=== PATIENT | male | born 1930 | race Caucasian/White ===

== ENCOUNTER 2016-12-15 15:24 | Inpatient (IN) | payer MEDICARE, OTHER ==
[~2016-12-15] VITALS: Ht 175.3 cm; Wt 95.5 kg
--- NOTE | ~2016-12-15 | HP ---
[facility] AGE[facility] 86 Y [address] ROOM: [place] [address] LOCATION: [facility] ADMIT DATE: 12/15/2016 History & Physical DISCHARGE DATE: FAMILY PHYSICIAN: PHYSICIAN, UNKNOWN ATTENDING PHYSICIAN: Ashley Vasques DATE OF SERVICE: 12/15/2016 REASON FOR REFERRAL: Cervical spine fracture. PATIENT IDENTIFICATION: Manuel Valle is an 86-year-old male. PRESENTING COMPLAINT: Fall. HISTORY OF PRESENT ILLNESS: The patient says he woke up this morning at 5:00 a.m. as he has been doing for years. He and his had a cup of coffee and his went off to nondenominational. He went back and sat on the edge of his bed. The next thing he remembers is hearing a thud and he had fallen down to the floor. He may have fallen asleep. He did sustain an abrasion to the left forehead area and also had neck pain. He was able to get a pillow from the closet and make himself comfortable on the floor until his got back from nondenominational. His then called their son who helped to lift the patient back up to bed again. The patient was then taken to the ER in [place]. He had a head CT scan and a cervical spine CT. The imaging studies showed cervical spine fracture, see below. The patient was therefore transferred to [facility] for further evaluation and treatment. According to the patient's notes, the patient has had a couple of falls lately. PAST MEDICAL HISTORY: Significant for hypertension, sleep apnea, degenerative arthritis of the knee, type 2 diabetes, gastroesophageal reflux disease, gout, coronary artery disease, benign prostate hyperplasia, congestive heart failure with ejection fraction less than 40% as of October 14, 2016. The patient also has hypoxia and urinary retention. The patient has had pacemaker placed in 2012. He also has stents in his coronary arteries. He has had tooth extractions. FAMILY HISTORY: According to the records, the patient has leukemic reticuloendotheliosis. His father and some siblings have . [facility] AGE: 86 Y [address] ROOM: [place] [address] LOCATION: [facility] ADMIT DATE: 12/15/2016 History & Physical DISCHARGE DATE: FAMILY PHYSICIAN: PHYSICIAN, UNKNOWN ATTENDING PHYSICIAN: Ashley Vasques SOCIAL HISTORY: The patient is and lives with his spouse. He drinks alcohol occasionally. He quit smoking in 1979 after smoking a pack a day for 15 years before that. REVIEW OF SYSTEMS: CONSTITUTIONAL: No fevers or chills. HEAD, EAR, NOSE, AND THROAT: No cold symptoms or ear discharge or ear pain. RESPIRATORY: No cough or shortness of breath. CARDIOVASCULAR: No chest pain. MUSCULOSKELETAL: The patient has neck pain. NEUROLOGICAL: No tingling or weakness in his extremities. GASTROINTESTINAL: No abdominal pain. PHYSICAL EXAMINATION: GENERAL: The patient is an elderly gentleman who is quite alert and clear in his speech. VITAL SIGNS: From the records, blood pressure 141/73 and heart rate is 74. NEUROLOGIC: Speech is clear. Cranial nerves, no gross deficits. HEAD, EYES, EARS, NOSE, AND THROAT: The patient has an abrasion to the left forehead area. EXTREMITIES: No cyanosis, but the patient has bruising in his arms. MOTOR EXAMINATION: The patient is unable to raise his left arm fully, but this is someone old situation, nothing related to the current fall. He has normal strength in all his other extremities. CARDIOVASCULAR: Heart sounds are present. RESPIRATORY: Not short of breath at bedside. SKIN: No skin rashes or skin masses. GENITOURINARY: The patient has an indwelling Kaur catheter. EXTREMITIES: The patient has bilateral pitting edema, trace. REVIEW OF IMAGING STUDIES: The patient has had CT scan of the cervical spine and head. Cervical spine CT shows a type 2 odontoid fracture with only slight displacement. The patient also has a Tim-type fracture. ASSESSMENT: An 86-year-old male with history of fall from his bed this morning, now has a cervical spine fracture. MEDICAL DECISION MAKING: The patient has been admitted to the hospital and his fractures will be treated with a cervical collar at the first instance. Repeat CT scan will be obtained in the next 2 days to check stability. If the fractures remain PATIENT'S NAME: MANUEL VALLE [facility] AGE: 86 Y [address] ROOM: [address] [address] LOCATION: [facility] ADMIT DATE: 12/15/2016 History & Physical DISCHARGE DATE: FAMILY PHYSICIAN: PHYSICIAN, UNKNOWN ATTENDING PHYSICIAN: Ashley Vasques stable, it will be possible to treat the patient nonoperatively. On the other hand, if he shows displacement, we will have to talk about surgery at that point. MD NADINE BOWDENO/modl /[id number] CC: Corby Cruz MD D: T: HISTORY & PHYSICAL
--- NOTE | ~2016-12-15 | DS ---
PATIENT'S NAME: GORGE VALLE [facility] AGE: 86 Y [address] ROOM: [facility] [place], [place] [address] LOCATION: [facility] ADMIT DATE: 12/16/2016 Discharge Summary DISCHARGE DATE: 12/24/2016 FAMILY PHYSICIAN: Physician, Unknown ATTENDING PHYSICIAN: Ashley Vasques REASON FOR ADMISSION: The patient had a fall at home and sustained a cervical spine fracture. On examination, the patient was alert and fully responsive. He had an abrasion to the left forehead area. TREATMENT RENDERED: The patient was admitted to the hospital. He had a CT scan of his cervical spine from the referring facility. The CT scan showed a type 2 odontoid fracture as well as a Tim fracture. The patient was maintained in cervical collar with spine precautions. He had a repeat CT scan while in the collar. The CT scan showed stable fractures. We, however, could not explain why the patient had had significant problems walking. It appeared every time he stood up, his legs would give out on him. For this reason, CT scan of the lumbar spine was performed. The CT scan showed severe spinal stenosis. The patient was therefore taken to the operating room and underwent bilateral laminectomy at L2-L3, L3-L4, and L4-L5. His surgery was uncomplicated. His postoperative course was uneventful. It was not clear whether the patient has really got much strength back in his lower extremities. He did try to stand up a few times with Physical Therapy. The patient continued to progress and by the 24 of December, he had met all criteria for dismissal. The patient was transferred that day to [facility] in [place] with diagnoses of cervical spine fractures treated nonoperatively and lumbar spinal stenosis treated with laminectomy. I will follow the patient up in [place] when I go there for outpatient clinic in January. MD NADINE BOWDENO/modl /[id number] d: 12/30/[id number] t: 05/29/17 1915, DISCHARGE SUMMARY
--- NOTE | ~2016-12-15 | CON ---
[facility] AGE: 86 Y [address] ROOM: [place] [address] LOCATION: [facility] ADMIT DATE: 12/16/2016 Consultation DISCHARGE DATE: 12/24/2016 FAMILY PHYSICIAN: Physician, Unknown ATTENDING PHYSICIAN: Ashley Vasques DATE OF CONSULTATION: 12/17/2016 REASON FOR CONSULTATION: Hypercapnic respiratory failure. HISTORY OF PRESENTING ILLNESS: Mr. Manuel Valle is a very pleasant 86-year-old male, who was admitted to the hospital for a cervical spine fracture. Apparently, the patient had a fall landing on the floor, he did sustain an abrasion on his forehead. Apparently, his came back from the mormonism and found him on the floor. He was transferred and he was found to have cervical fracture. Overnight, the patient apparently desaturated and had an ABG, which revealed hypercapnia. The patient was given some narcotics and a little bit of Ativan for agitation and pain. Subsequently, the patient had a history of severe obstructive sleep apnea, which has not been treated. The patient refuses CPAP. The patient denied any current chest pain, pleurisy, hemoptysis, nausea, vomiting, abdominal pain. PAST MEDICAL HISTORY: Significant for: 1. Hypertension. 2. Sleep apnea. 3. Degenerative arthritis of the knee. 4. Type 2 diabetes mellitus. 5. Gastroesophageal reflux disease. 6. Gout. 7. Coronary artery disease. 8. Benign prostate hyperplasia. 9. Congestive heart failure with ejection fraction less than 40% as of October 14, 2016. The patient also has a history of urinary retention. 10. Pacemaker placed in 2012. He has a history of PCI, it is not clear to me which coronary artery. FAMILY HISTORY: His father and siblings are . Further history is not available given the patient's condition. SOCIAL HISTORY: [facility]: [facility] AGE: 86 Y [address] ROOM: [place] [address] LOCATION: [facility] ADMIT DATE: 12/16/2016 Consultation DISCHARGE DATE: 12/24/2016 FAMILY PHYSICIAN: Physician, Unknown ATTENDING PHYSICIAN: Ashley Vasques The patient is and lives with his spouse who drinks alcohol occasionally. He quit smoking in 1979 after smoking a pack a day for 15 years. REVIEW OF SYSTEMS: A 10-point review of system was done and otherwise negative other than mentioned in history of presenting illness. This was done to the best ability of the patient given his situation and confusion. PHYSICAL EXAMINATION: GENERAL: The patient is sitting in bed, comfortable, does not appear in acute distress, although he is a little sleepy. VITAL SIGNS: Blood pressure is 135/75; heart rate was in the mid 80s; respiratory rate were between 10 and 14; SpO2 was in the early 90s, 91-93. HEENT: Eyes are nonicteric. Pupils are equal, reactive to light and accommodation. HEENT: Normocephalic, atraumatic. Mallampati score is 4 with dry mucous membranes. NECK: Short and thick, supple. No lymphadenopathy or jugular venous distention noted. LUNGS: Good bilateral air entry. No rales or rhonchi. HEART: S1, S2. No murmurs, rubs, or gallops. ABDOMEN: Soft, nontender, no palpable organs. LOWER EXTREMITIES: No edema, clubbing, or cyanosis. SKIN: No rashes or lesions. NEUROLOGY: The patient is sitting in bed. He has a collar. He moves all 4 extremities at the current point. He is slightly lethargic, but arousable to verbal stimuli. REVIEW OF IMAGING STUDIES: The patient had a CT scan of the cervical spine and has a cervical CT, shows type 2 odontoid fracture with only slight displacement. The patient has a Tim-type fracture. LABORATORY DATA AT THE TIME OF EVALUATION: Still pending. IMPRESSION: Hypercapnic respiratory failure. At the current point, it is most likely secondary to untreated obstructive sleep apnea associated with narcotic use for pain and also the patient was given Ativan, which has contributed to his hypercapnia. RECOMMENDATIONS: At the current point, recommendations would include: PATIENT'S NAME: MANUEL VALLE [facility] AGE: 86 Y [address] ROOM: [id number] [place] [id number] LOCATION: [facility] ADMIT DATE: 12/16/2016 Consultation DISCHARGE DATE: 12/24/2016 FAMILY PHYSICIAN: Physician, Unknown ATTENDING PHYSICIAN: Ashley Vasques 1. Start the patient on CPAP at night. 2. Place end-tidal CO2 on the patient with narcotic use. 3. It was also advised to avoid narcotic and sedatives if at all possible. 4. Use alternative pain medication. 5. Ambulation as per Neurosurgery. I would also recommend that the patient have a BiPAP p.r.n. with sleeping during the day that will prevent hypercapnia, it would also help decrease the pulmonary artery pressure and the nighttime hypoxemia, which also will promote healing. Thank you for allowing me to participate in the care of this patient. MD TARAS JJ/carl /[id number] d: 01/14/17 0019 t: 01/17/17 1813, CONSULTATION REPORT
--- NOTE | ~2016-12-15 | OR ---
PATIENT'S NAME: GORGE VALLE [facility] AGE: 86 Y [address] ROOM: [address] [address] LOCATION: [facility] ADMIT DATE: 12/16/2016 OR/Procedure Report DISCHARGE DATE: FAMILY PHYSICIAN: PHYSICIAN, UNKNOWN ATTENDING PHYSICIAN: Ashley Vasques SURGEON: Ashley Vasques MD CLIENT SPECIALIST: Suzanna Krishnan CST. DATE OF PROCEDURE: 12/20/2016 PREOPERATIVE DIAGNOSIS: Lumbar spinal stenosis. POSTOPERATIVE DIAGNOSIS: Lumbar spinal stenosis. PROCEDURE PERFORMED: Laminectomy bilateral with foraminotomy and decompression of neural elements at L2-3, L3-4, and L4-5. ANESTHESIA: General. ANESTHESIA PROVIDER: Andres Mtz MD. HISTORY: The patient is an 86-year-old male, admitted with cervical spine fracture. Cervical spine fracture is being treated with a cervical collar. The patient, however, had significant difficulty walking. His legs would just give out on him when he walked a few steps. CT scan of his lumbar spine was performed and it showed severe spinal stenosis, especially at L3-4 and L4-5 and to some degree at L2-3. There was potential for compression of all the nerves traversing these areas. Surgery was therefore recommended. The above procedure, benefits, and risks were discussed with the patient and his family members. Consent was obtained and the patient was taken to the operating room for surgery. PROCEDURE IN DETAIL: In the operating room, the patient was placed in a supine position. Anesthesia was induced. He was intubated. He was rolled to a prone position on a Jacky table, taking care to make sure his neck was stable. The incision was marked out in the midline of his lower back, and the whole area was prepped and draped in a sterile fashion. Local anesthesia was infiltrated. The #10 blade was used to open the incision and deepen it to the fascial layer. Self-retaining retractors were placed. The Bovie was then used to open the fascia and to expose the tips of the spinous processes. The paraspinous muscles were dissected of the laminae and spinous processes of the L2, L3, L4, and L5. Intraoperative x-ray was obtained to confirm the levels. The self-retaining retractors were adjusted. Laminectomy was started. Leksell rongeur was used to remove the spinous processes and the middle portion of the laminae at L2, L3, L4, and L5. A drill was then used to thin down the laminae. Kerrison rongeur was used to continue the central PATIENT'S NAME: GORGE VALLE [facility] AGE: 86 Y [address] ROOM: [place] [address] LOCATION: [facility] ADMIT DATE: 12/16/2016 OR/Procedure Report DISCHARGE DATE: FAMILY PHYSICIAN: PHYSICIAN, UNKNOWN ATTENDING PHYSICIAN: Ashley Vasques decompression. The canal was exceedingly stenotic at L3-4 as the CAT scan had indicated. Working very carefully, laminectomy was continued until the central canal was decompressed. Ligamentum flavum was exceedingly thick in this region. Having completed the central decompression, attention was directed to the lateral recesses and the foramina. The medial facet was drilled down to increase the width of the laminectomy. The Kerrison rongeur was then used to remove part of the medial facet on both sides until the edge of the dura became visible. The disk spaces were identified. The nerve roots were then seen going out into their respective foramina bilaterally at L2-3, L3-4, and L4-5. These foramina were completely decompressed with Kerrison rongeur. There was periodic bleeding which was controlled readily with fibrillar and cottonoids. After satisfactory decompression of both central canal, lateral recesses, and foramina, irrigation was used to wash out the debris. Final hemostasis was achieved. Bone wax was used to wax the edges of the laminectomy. The incision was closed with appropriate suture materials. Nylon was used to close the skin. A sterile dressing was applied. The patient was rolled back to a supine position. His anesthesia was reversed, he was extubated and taken to the recovery room to complete his recovery. I was present at and performed every aspect of this procedure, assisted at some stages by operating room nurses. There were no apparent intraoperative complications. Swabs, needles, and instruments were all accounted for at the end of the case. Estimated blood loss was 300 mL and there was no reason for blood transfusion. I expect the patient to benefit from this procedure. Hopefully, he will be able to walk without his legs buckling on him. MD CHRIS BOWDEN/carl /[id number] d: 12/21/16 0239 t: 12/30/16 1704, OPERATIVE SUMMARY
--- NOTE | 2016-12-16 00:52 | NUR ---
Significant Event: Patient came from [place] via ambulance. After his left for [facility], he went to sit on the edge of bed. He ended up falling asleep and fell out of the bed. He fell and hit his head on carpeted area. Patient laid on the ground a couple of hours until returned from [facility]. He was then transported to [place] to have a CT. They found the cervical fractures and sent him to [facility]. Patient has a history of stent 2011, pacemaker in 2012, type II diabetes, arthritis, renal insufficency - chronic urinary catheter November 2016, pressure ulcers, and O2 at home 2-3L. No known allergies. Rigid collar in place. Bedrest until wallpaper hanger sees to fit vista collar. Family at bedside. IV to left hand. Full code. said patient has been retaining flood so they have him on a low sodium diet with a 2L water restriction. Follow up:
--- NOTE | 2016-12-16 01:05 | NUR ---
Patient came from [place] via ambulance. After his left for [facility], he went to sit on the edge of bed. He ended up falling asleep and fell out of the bed. He fell and hit his head on carpeted area. Patient laid on the ground a couple of hours until returned from [facility]. He was then transported to [place] to have a CT. They found the cervical fractures and sent him to [facility]. Patient has a history of stent 2011, pacemaker in 2012, type II diabetes, arthritis, renal insufficency - chronic urinary catheter November 2016, pressure ulcers, and O2 at home 2-3L. No known allergies. Rigid collar in place. Bedrest until stock hanger sees to fit vista collar. Family at bedside. IV to left hand. Full code. said patient has been retaining fluid so they have him on a low sodium diet with a 2L water restriction.
--- NOTE | 2016-12-16 04:13 | NUR ---
Significant Event: A/OX3. DENIES NUMBNESS AND TINGLING. MOVES ALL EXTREMITIES SPONTANEOUSLY AND TO COMMAND. STRONG, EQUAL STRENGTH. EDEMA TO LOWER EXTREMITIES. 1+ PULSES IN LOWER EXTREMIITES. VISTA COLLAR TO NECK - ON AT ALL TINMES. IV TO LEFT HAND SALINE LOCKED. CHRONIC BENJAMIN IN PLACE. PRESSURE ULCERS TO BUTTOX - WOC CONSULTED. ACHS ACCUCHECKS. SCATTERED ABRASIONS AND BRUISING THROUGHOUT. YEAST TO GLANS OF PENIS. SCDS INTACT. ON 2 L OF O2 CHRONICALLY AT HOME. Follow up:
[2016-12-16] MEDS ORDERED: DEMADEX20 MG PO (09:08)
[2016-12-16] MEDS ORDERED: ANUSOL-HC CREAM30 GM R (09:09)
[2016-12-16] MEDS ORDERED: NORVASC5 MG PO (09:11)
[2016-12-16] MEDS ORDERED: GABAPENTIN100 MG PO (09:12)
[2016-12-16] MEDS ORDERED: NEURONTIN300 MG PO (09:14)
[2016-12-16] MEDS ORDERED: LANTUS (IN100 UNIT/M SUB-Q (09:15)
[2016-12-16] MEDS ORDERED: GLUCOPHAGE500 MG PO (09:16)
[2016-12-16] MEDS ORDERED: TYLENOL325 MG PO (09:17)
[2016-12-16] MEDS ORDERED: ZAROXOLYN2.5 MG PO (09:17)
[2016-12-16] MEDS ORDERED: COLACE100 MG PO (09:18)
[2016-12-16] MEDS ORDERED: ASPIRIN325 MG PO (09:18)
[2016-12-16] MEDS ORDERED: TESSALON PERLE100 MG PO (09:18)
[2016-12-16] MEDS ORDERED: K-TAB 10MEQ10 MEQ PO (09:19)
[2016-12-16] MEDS ORDERED: ZYLOPRIM100 MG PO (09:20)
[2016-12-16] MEDS ORDERED: CIPRO500 MG PO (09:20)
[2016-12-16] MEDS ORDERED: LIPITOR10 MG PO (09:20)
[2016-12-16] MEDS ORDERED: INVOKANA100 MG PO (09:21)
[2016-12-16] MEDS ORDERED: BYSTOLIC5 MG PO (09:21)
[2016-12-16] MEDS ORDERED: GLUCOTROL10 MG PO (09:21)
[2016-12-16] MEDS ORDERED: FEOSOL325 MG PO (09:22)
[2016-12-16] MEDS ORDERED: VITAMIN D-32000 UNI1 PO (09:23)
[2016-12-16] MEDS ORDERED: DUONEB INH (09:23)
[2016-12-16] MEDS ORDERED: DIBUCAINE28 GM R (09:23)
[2016-12-16] MEDS ORDERED: PRILOSEC20 MG PO (09:24)
[2016-12-16] MEDS ORDERED: PROVENTIL OR V6.7 GM INH (09:24)
[2016-12-16] MEDS ORDERED: MILK OF MA400 MG/5 M PO (09:25)
[2016-12-16] MEDS ORDERED: MIRALAX17 GM PO (09:26)
[2016-12-16] MEDS ORDERED: TUCKS PADS TOP (09:26)
--- NOTE | 2016-12-16 16:51 | NUR ---
Significant Event:VSS, paced rhythm, O2 3L/NC for sats 94-98%. rates pain 2-8/10. [place] 1 tab x 2 last dose at 1506. Reports relief of cervical neck pain. Denies pain in shoulders/arms. Denies N/T. Hand grasps strong bilaterally. [place] collar on at all times. Readjusted by Information Technology Officer this a.m. Pt has 3 small open areas on R buttocks, and 1 open are on sacrum. WOC recommends positioning, aloe vesta now. Pt repositioned frequently. Sling lift used for tx to bed/chair. Follow up:Pain control, CM working on NH placement in [facility]. Spouse returned home, and will call for updates.
--- NOTE | 2016-12-17 03:48 | NUR ---
Significant Event: AAOx3, denies N/T. Pupils 3mm sluggish. Systolic 130-140's, HR 70's PACED. 1+ pedal edema with weak pedal pulses. L.S. clear and diminished throughout on BiPAP 35%FiO2, episodes of 30-40 seconds of apnea, saturations sustain 93-99%. 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 Stood patient at bedside and ambulated to couch, his legs did give out and patient reports he has had this happen before. Transfers heavy 2PA walker/GB or Full Lift with chair sling. B.S. active, last BM 12/14. Chronic paul catheter draining brianna urine. PIV L) hand SL'd. Takes medications whole one at a time. Gave Tylenol last at 2355 and [place] at 2100 for posterior neck pain; relief noted, is very sensitive to narcotics, would recommend Tylenol to control pain at meantime. Accuchecks AC/HS, gave Zofran at 2000 for C/O nausea. Follow up: Pulmonology to see patient in AM, monitor neuro status. Turn Q2Hrs, pressure ulcers to cocyx.
--- NOTE | 2016-12-17 11:37 | NUR ---
A - PT SEEN D/T PU CONSULT. ACCUCHECKS IN 200'S. MEDS REVIEWED. PT W/ PU'S TO VAZQUEZ. DIET: DIABETIC W/ 75-100% ORAL INTAKE. D - AT RISK W/ INCREASED NUTRIENT NEEDS R/T ALTERED SKIN INTEGRITY AEB PU'S. I - GOAL: CONTINUED 75-100% INTAKE. M/E - 1) WILL ADD PANCHITO BID AND GLUCERNA QD. 2) F/U IN 3-5 DAYS.
--- NOTE | 2016-12-17 14:44 | NUR ---
Significant Event: VSS. PATIENT ORIENTED X 3. IRRITABLE AT TIMES AND NOT COMPLIANT WITH STAFF. FOLLOWS COMMANDS. MODERATE STRENGTH WITH GRASPS AND FLEXION, BUT WEAKNESS NOTED WHEN RAISING ARMS. HAS A HARD TIME LIFTING THEM DUE TO PAIN IN SHOULDERS. DENIES NUMBNESS/TINGLING. PUPILS 3MM ,SLUGGISH. LUNGS CLEAR AND DIM, CURRENTLY ON 3 LITERS OF O2. WEARS CPAP AT NIGHT. CURRENTLY ON ETCO2 MONITOR PER DR LEON'S ORDER THIS AM. PATIENT WAS VERY DROWSY AND APNEIC IN THE NIGHT, DR RELATING IT TO THE NARCOTICS. IT IS RECOMMENEDED WE DONT GIVE PATIENT NARCOTICS. TYLENOL GIVEN FOR PAIN TODAY, BUT THIS AFTERNOON HIS NECK AND LEFT SHOULDER WERE STILL VERY SORE. ORDERED OBTAINED BY DR THOMPSON FOR TRAMADOL. GIVEN THIS AFTERNOON, SLEEPING NOW. IV IN LEFT HAND SALINE LOCKED, WAS BLEEDING THIS AM. DRESSING CHANGED AND SEEMS TO BE OK NOW. UP WITH 2 ASSIST HEAVY PIVOT OR STAND. MAY NEED LIFT AT TIMES. SORES OPEN TO BUTTOCKS , ALOE APPLIED. PT ALSO C/O HEMMRHOIDS, TUCKS USED TODAY. I STRESSED THE IMPORTANCE OF REPOSITIONING DUE TO HIS SORES AND AT TIMES PATIENT STILL REFUSES. ACCUCHECKS ACHS. Follow up: PAIN CONTROL. NEURO STATUS. REPOSITIONING. ALARMS.
--- NOTE | 2016-12-17 16:12 | NUR ---
Spoke with Yancy at [facility] in [place]. She says they are willing to look at him and to fax information. She says he has been there before and she thinks he has used most of his medicare skilled days. Told her I had talked to about being self pay as he started out as observation status. Yancy will get back to me tomorrow. Faxed information to [facility]. Will follow.
--- NOTE | 2016-12-18 06:44 | NUR ---
Significant Event: Patient alert/oriented x 3. Forgetful at times. Has been pleasant and cooperative for most of shift. Moves all extremities spontaneously and to command with equal strength. Pacemaker. 3L of 02. Wore CPAP last night, compliant. Lungs clear and dim throughout. Active bowel sounds. Chronic indwelling paul intact. Full lift per nursing. L fa SL. [place] collar at all times. Open areas to coccyx and buttocks. Tylenol given x 1 this shift for pain, relief noted. ACHS. Follow up: Continue to monitor.
--- NOTE | 2016-12-18 16:56 | NUR ---
Significant Event: Alert and oriented X 3. O2 at 0.5 L by nasal cannula. SBP 130's and 140's. HR 70's. Accu check 232, 210 and 201. Complete bag bath and shave done today. Up with full lift. Patients knees gave out while therapy was working with him this shift. Patient keeps saying he is falling while sitting in chair, this occurs every time he jerks. Chronic paul with 1375 ml out this shift. Tramadol given X 2 this shift, last given at 1549 for pain of 03/13. Pleasant and cooperative with cares. Follow up:
--- NOTE | 2016-12-18 17:33 | NUR ---
Spoke with patient's and granddaugther this a.m. and told them waiting to hear back from [facility]. asks about him going to [facility]. Told her I can make a referral to them also. Called Ivette at [facility] and referral made. Ivette says they will not accept and recommend SNF at [facility] facility as they say he will require longer stay than is appropriate for them. Call from Taylor at [facility] and they can accept patient. She would like to know if family wants private or semiprivate room as they have both available. Talked to patient, his and granddaughter. Updated them on saying no and [facility] saying yes. Asked if would want private or semi private room and explained there is additional charge for private room and medicare will not pay that additional charge. They say he would want a private room and they voice they understand there is additional charge. Told them it is possible he will be ready for transfer tomorrow. Talked about transportation and told them at this time he would need to transfer via ambulance as not safe to transfer via private vehicle. They voice agreement. Told them medicare will decide after the fact if will cover ambulance. Told them Dr. Vasques will decide if ready for transfer tomorrow or not. Will follow.
--- NOTE | 2016-12-19 02:15 | NUR ---
Significant Event: Patient is alert and oriented x3. Follows commands. Did c/o pain at first assesment PO medications given- denies pain at last two assessements. Equal moderate strength. PERRLA. 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 Thready pulses in lower extremities. No edema. 2-3L per nasal cannula- Bipap on at NOC. Lungs clear/dim to dim. Diabetic diet-accu checks ACHS (mild sliding scale). Last BM 12/14-active x4. Chronic paul zumi-[id number]-ghilg is clear. 2A full lift. Left FA PIV sl'd and flushes well. Witch domo to bottom along with aloe vista. Skin tear to right arm and hand. Follow up: Possible discharge to [facility] today 12/19/16.
--- NOTE | 2016-12-19 15:00 | NUR ---
Multiple calls with Taylor at [facility]. They can accept today if they have the orders by 1400, as medications after that time won't be delivered today. Talked to comm spec and told them possible transfer to [place] today. Charge nurse talked to Dr. Vasques in OR and I talked to him later in OR. He said he would be to the floor before 1400. Have visited with and patient several times today. Dr. Vasques rounds at 1430. Talked to [facility] and they can not accept him today. Dr. Vasques says patient says he doesn't feel as well today, so he orders CT for tomorrow a.m. Anticipate transfer to [facility] tomorrow depending on results of CT scan. Will follow.
--- NOTE | 2016-12-19 19:10 | NUR ---
Significant Event:A/O x 3, follows commands, legs weak. Dameron 1 tab x 2, last dose at 1153 rates pain 3-5/10. Tx poorly, used mechanical lift for transfers. Pt knees give out during therapy. Denies numbness/tingling to upper extremities. [place] collar remains on at all times. O2 on 1L/NC. Lungs clear/diminshed. 3 open areas on buttocks, one on sacrum. WOC monitoring, will see pt again in early a.m. Kaur (chronic) intact with yellow urine. CT scan of cervical and lumbar spine completed. Follow up:DC to [facility] if scans WNL.
--- NOTE | 2016-12-20 07:12 | NUR ---
Significant Event: Patient A/O x 3. Denies N/T. Moves all extremities spontaneously and to command with equal strength. Forgetful of situation at times. Lungs clear and dim on 2 L of 02. CPAP while sleeping. Bowel sounds active. PIV to left wrist SL. Kaur intact. Full lift per nursing. Follow up:[facility] today
--- NOTE | 2016-12-20 11:15 | NUR ---
Dr. Vasques reviewed CT scans and talked with patient and family. Plan is for [facility] later today. Called and update Taylor at [facility] in [place]. Told her will touchbase with her on Friday. Anticipate he will be ready for discharge Friday or Friday. Will follow.
[2016-12-20 11:38] LABS: BASOPHIL % 0.4 %; EOSINOPHIL # 0.1 K/uL (0.0-0.5); EOSINOPHIL % 1.1 %; HEMOGLOBIN 12.1 g/dL (11.0-16.0); IMMATURE GRANULOCYTE % 0.3 %; LYMPHOCYTE # 1.9 K/uL (0.8-4.0); LYMPHOCYTE % 19.4 %; MCH 24.3 pg (27.0-34.0); MCHC 30.3 gm/dL (32.0-36.5); MCV 80.5 fl (83.0-98.0); MONOCYTE # 0.9 K/uL (0.0-1.0); MONOCYTE % 9.1 %; MPV 9.8 fl (9.4-12.4); NEUTROPHIL # (ANC) 6.9 K/uL (1.4-9.0); NEUTROPHIL % 69.7 %; NRBC % 0 /100WBC (0-0.00); PLATELET COUNT 309 K/uL (150-450); RBC 4.97 M/uL (3.50-5.50); RDW-CV 19.9 % (11.9-14.6); WBC 9.9 K/uL (4.0-11.0)
[2016-12-20 11:47] LABS: INR - (THERAPEUTIC) 1.02 (0.92-1.07); PROTIME 10.7 SECONDS (9.8-11.4); PTT 31 SECONDS (25-32)
[2016-12-20 11:57] LABS: ALBUMIN 3.4 gm/dL (3.5-5.0); CALCIUM 9.6 mg/dL (8.5-10.5); TOTAL BILIRUBIN 0.3 mg/dL (0.0-1.5); TOTAL PROTEIN 7.8 g/dL (6.0-8.4)
[2016-12-20 11:59] LABS: ANION GAP 18.7 (10.0-19.0); POTASSIUM 5.7 mMol/L (3.7-5.1)
--- NOTE | 2016-12-20 14:37 | NUR ---
A-NUTRITION F/U TO OR TODAY FOR LAMI. PUs ON COCCYX LABS: NA 134, K+ 5.7, GLU 169, BUN 105, PERSONAL FITNESS MANAGER 3.0, ALB 3.4 NO NEW MEDS SINCE FIRST ASSESSMENT DIET RX: NPO. PO INTAKE PRIOR TO NPO STATUS WAS 50-100%; AVG IS 70% SINCE ADMIT. EST NUTR NEEDS: 0310-3798 KCALS (20-25 KCALS/KG) 110-146 GM PROTEIN (1.5-2.0 GM/KG IBW) 1 ML FLUID/KCAL D-AT NUTRITION RISK W/INCREASED NUTRIENT NEEDS R/T ALTERED SKIN INTEGRITY AEB MULTIPLE PUs ON COCCYX I-RESTART PANCHITO BID AND GLUCERNA QD WHEN DIET RESUMED POST-OP M/E-GOAL: PO INTAKE >/=75% BY NEXT F/U 1)F/U PO INTAKE, SUPPLEMENT, SKIN, AND POC IN 4-6 DAYS 2)ASSIST NEEDED
--- NOTE | 2016-12-20 15:45 | NUR ---
Significant Event: PT alert, forgetful, confused at times. VSS, O2 at 2L per nasal cannula. [place] collar on at all times. Pain controlled with norco. IV patent to L)wrist. Kaur patent. PT up to chair with full lift. PT to OR at 1415. Follow up:
[2016-12-21 04:57] LABS: ALBUMIN 3.1 gm/dL (3.5-5.0); ANION GAP 16.3 (10.0-19.0); CALCIUM 8.8 mg/dL (8.5-10.5); CREATININE 2.8 mg/dL (0.6-1.3); PHOSPHORUS 5.2 mg/dL (2.5-4.9); POTASSIUM 5.3 mMol/L (3.7-5.1)
--- NOTE | 2016-12-21 05:05 | NUR ---
Significant Event: FIRST ASSESSMENT PATIENT WAS ALERT AND ORIENTED TO SELF-CONFUSED, IMPULSIVE, RESTLESS. SECOND ASSESSMENT ADMINISTERED PAIN MEDICATIONS AND PATIENT HAD BECOME MORE CALM. THIRD ASSESSMENT PATIENT BECAME AGITATED AGAIN AND RESTLESS-PAIN MEDS GIVEN. WAS ABLE TO FOLLOW SOME COMMANDS. MUMBLES. MODERATE STRENGTH. THREADY PULSES. LEFT WRIST PIV WITH NS AT 75 ML, RIGHT HAND-SL'd. PERRLA. 2-4L OF O2 PER NC-CPAP ON AT NOC. TAKES PILLS WHOLE WITH WATER ONE AT A TIME. BOWELS ARE HYPO-LAST BM 12/14. 2A FULL LIFT. VISTA COLLAR ON AT ALL TIMES. MAY NEED A 1:1 OR 15 MIN CHECKS Follow up: [facility] WHEN READY.
--- NOTE | 2016-12-21 19:49 | NUR ---
Significant Event: a/o x 3. confused conversationally about having had surgery yesterday and repeatedly stating he is "returning to [employer] today". Pain to back. PRN norco for pain management. equal moderate strength. vista collar on at all times. DSG to back had saturated bloody drainage. old dsg removed and [facility] dsgs- one stacked on the other, placed over surgical site. paced heart rythm. 2 liters of oxygen. full lift with transfers. takes meds whole. ADA diet. accuchecks ac/hs. dulcolax suppository given for bowel regulation with results pending. IV to right hand saline locked. IV to left wrist with NS at 75ml/hr. pedal pulses thready- doppler in room. 3 open areas to coccyx. turn side to side and apply aloe vesta. CPAP at night. Discharge plan- [facility] friday or friday.
--- NOTE | 2016-12-22 05:05 | NUR ---
Significant Event: Patient A/O x 3, forgetful of situation at times. Moves all extremities spontaneously and to command with equal strength througout. Very [place]. Denies N/T. Generalized headache and pain to back this shift. Lungs clear and dim on 1-2 L during the day and CPAP at night. Given Ultram x 1 this shift at 1930, relief noted. No bm this shift. Given Milk of Mag this am. ADA soft diet. Chronic paul intact. Full lift for transfers. [place] Bar[place] dressing x 2 intact with scant drainage to lumbar spine. Open areas to coccyx and buttocks. [place] collar on at all times. NS running at 75 ml/hr in R)hand. Takes meds whole one at a time. ACHS accuchecks. VSS. Follow up: Pain control. Turn q2.
--- NOTE | 2016-12-22 14:50 | NUR ---
Significant Event: AOx3 but forgetful at times. Rigid collar on at all times. Dressing to back is dry and intact. Open sores on coccyx woth aloe applied. Scattered bruises on body. Kaur intact draining clear yellow urine. Do not remove. 2L/O2 during day and cpap at night. Transfers with full lift. AC&HS accuchecks. VSS. CSM WNL. Loose stool x1. Planning on going to [facility] sometime. Follow up:
--- NOTE | 2016-12-23 02:49 | NUR ---
Significant Event: Patient is alert and oriented to person, , year, and type of building. Disoriented to city and month. Forgetful. PERRL. VSS. Afebrile. Moves spontaneously and follows commands. Equal strength throughout. [place]. Denies numbness or tingling. Headache at times and pain to back at times. Tylenol or Ultram for pain. 2+ pulses. On 2L O2 via NC. Wears oxygen at home. Lungs clear and diminished. Refused CPAP. Bowel sounds active. No BM this shift. Chronic indwelling paul with yellow urine draining without difficulty. Diabetic appetite with poor appetite. ACHS accucheks. NS infusing at 75 mL/hr with no complications. Full lift. [place] barrier dressings to back dry and intact with scant shadow drainage. Open areas to coccyx and buttocks-aloe vesta applied and repositioned every two hours. [place] collar on at all times. SCDs in place. IV is to right hand. Takes medications one at a time with water. When patient holds his water he tends to jerk and drop it--hands on assist. Follow up: pain management, reposition Q2H, ACHS accucheks, activity, discharge to [facility] soon
--- NOTE | 2016-12-23 15:02 | NUR ---
Patient is alert and oriented, VSS, on 2L O2 per NC. 2 assist with PT and full lift for nursing staff. ACHS accucheck with mild sliding scale insulin. Gave 4 units at lunch for a BS of 291. Has only eaten bites of lunch and breakfast. He states he has a decreased appetite. He has jerky motions of his arms so it is hard for him to eat and drink without spilling. IGIUGIG. Pressure ulcers to the coccyx x3, open and purple, WOC on board. Kaur is chronic. Lami dressing on lower back is clean, dry and intact. Will dismiss to [facility] when ready.
--- NOTE | 2016-12-23 15:15 | NUR ---
Several call with Taylor at [facility] regarding transfer. Told her awaiting Dr. Vasques to round. Dr. Vasques says patient not ready for transfer today. Talked to Taylor at [facility] and updated her. Talked to patient's Kendra and updated her. Talked to patient and he says Dr. Vasques said he wasn't ready for transfer. He is disappointed he didn't get to go today and hopes he can go tomorrow. Will follow.
--- NOTE | 2016-12-24 03:27 | NUR ---
Significant Event: Patient is alert and oriented X 3. Forgetful. PERRL. VSS. Afebrile. Moves spontaneously and follows commands. Equal strength throughout. [facility] [place]. Denies numbness or tingling. Headache at times and pain to back/neck at times. Tylenol or Ultram for pain. 2+ pulses. On 2L O2 via NC. Wears oxygen at home. Lungs clear and diminished. Refused CPAP. Bowel sounds active. No BM this shift. Chronic indwelling paul with yellow urine draining without difficulty. Diabetic appetite with poor appetite. ACHS accucheks. Full lift. [place] barrier dressings to back dry and intact with scant shadow drainage. Open areas to coccyx and buttocks-aloe vesta applied and repositioned every two hours. [place] collar on at all times. SCDs in place. IV to right hand SL. Takes medications one at a time with water. When patient holds his water he tends to jerk and drop it--hands on assist. Follow up: pain management, reposition Q2H, ACHS accucheks, activity, discharge to [facility] soon
--- NOTE | 2016-12-24 14:37 | NUR ---
Patient admitted after fall off bed at home. C1 and C2 fracture. Neck colar on at all times. Patient is alert and orientated x3, forgetful, restless at times. O2 sat 2-3L NC per home dose, CPAP at night. Paced rhythm. Patient has chronic paul. Last BM 12/22. Accu checks ACHS. Up with 2-3 assist, walker, gait belt, pivot to chair. Diabetic diet with accu checks ACHS. Tylenol or Ultram given for pain. Patient transferred to [facility]. Jayde ESTRELLA RN
--- NOTE | 2016-12-24 15:16 | NUR ---
Talked to Dr. Vasques this a.m. and he will round around 1300 and he is not sure yet if will dismiss patient today or not. Several calls with Taylor at [facility] and with patient's and updated them. Notified about 1345 Dr. Vasques has rounded and is writing transfer order for patient to transfer today. Called [facility] comm spec to set up ambulance transfer. They will contact [facility] for the transport. Orders faxed. Called and updated Taylor at [facility] and they will accept him today. Called his and updated her. Nurse will call nurse to nurse report. Patient to transfer at 1500 today via [facility] ambulance service to [facility] in [place] for skilled care.
== END 2016-12-24 15:30 | DRG 515 ==
LOC: GPCU 15:24 → GNTU 18:46
PROVIDERS: ADMIT Neurological Surgery
PROC: 01NB0ZZ Release Lumbar Nerve, Open Approach (ICD-10-PCS; principal; 2016-12-20)
DX: S12.110A Anterior displaced Type II dens fracture, initial encounter for closed fracture (principal); L89.153 Pressure ulcer of sacral region, stage 3; J96.10 Chronic respiratory failure, unspecified whether with hypoxia or hypercapnia; E11.9 Type 2 diabetes mellitus without complications; S12.9XXA Fracture of neck, unspecified, initial encounter; W19.XXXA Unspecified fall, initial encounter; M19.90 Unspecified osteoarthritis, unspecified site; K21.9 Gastro-esophageal reflux disease without esophagitis; I25.10 Atherosclerotic heart disease of native coronary artery without angina pectoris; M48.06 Spinal stenosis, lumbar region; G47.33 Obstructive sleep apnea (adult) (pediatric); S00.12XA Contusion of left eyelid and periocular area, initial encounter; S00.212A Abrasion of left eyelid and periocular area, initial encounter; R47.1 Dysarthria and anarthria; Z95.5 Presence of coronary angioplasty implant and graft; Z95.0 Presence of cardiac pacemaker; Z87.891 Personal history of nicotine dependence
CPT/HCPCS: G0378; J0131; J0690; J1040; J2270; J2405; J2795; J3010; J7030